=== PATIENT | female | born 1950 | race Caucasian/White ===

== ENCOUNTER 2018-02-01 19:15 | Inpatient (IN) | payer MEDICARE, OTHER ==
[2018-02-01 20:09] LABS: HEMATOCRIT 38.9 % (41.0-60); HEMOGLOBIN 13.1 gm/dL (12-16); MEAN CELL VOLUME 87.1 fl (81-100); MEAN CORPUSCULAR HEMOGLOBIN 29.3 pg (27.0-31.0); MEAN CORPUSCULAR HGB CONC 33.7 pg (28.0-36.0); MEAN PLATELET VOLUME 7.9 fl; PLATELET COUNT 284 Th/cmm (150-400); RED BLOOD COUNT 4.47 Mil/cmm (3.80-5.20); RED CELL DISTRIBUTION WIDTH 12.8 % (11.5-20.0); WHITE BLOOD COUNT 9.2 Th/cmm (4.8-10.8)
[2018-02-01 20:24] LABS: ALB/GLOB RATIO 1.6 (1.0-1.8); ALBUMIN 4.1 gm/dL (3.7-5.3); ALKALINE PHOSPHATASE 57 U/L (34-104); ANION GAP 13.1 (7.0-16.0); BILIRUBIN,TOTAL 0.3 mg/dL (0.3-1.0); BUN - UREA NITROGEN 17 mg/dL (7-25); CALCIUM SERUM 10.2 mg/dL (8.6-10.3); CARBON DIOXIDE 23.7 mEq/L (21.0-31.0); CHLORIDE 106 mEq/L (98-107); CHOLESTEROL 181 mg/dL (<200); CREATININE - SERUM 0.7 mg/dL (0.6-1.2); GFR AFRICAN-AMERICAN > 60.0 ml/min (>90); GFR NON AFRICAN-AMERICAN > 60.0 ml/min; GLUCOSE 84 mg/dL (70-105); HDL -HIGH DENSITY LIPOPROTEIN 29 mg/dL (23-92); POTASSIUM SERUM 3.8 mEq/L (3.5-5.1); SALICYLATES (ASPIRIN) < 25.0 mg/L (30.0-100.0); SGOT 28 U/L (13-39); SGPT/ALT 34 U/L (7-52); SODIUM SERUM 139 mEq/L (136-145); TOTAL PROTEIN,SERUM 6.6 gm/dL (6.0-8.3); TRIGLYCERIDES 202 mg/dL (<150)
[2018-02-01 20:26] LABS: ACETAMINOPHEN < 10.0 ug/mL (10.0-30.0)
[2018-02-01 21:19] LABS: % BASOPHILS 0.9 % (0.0-2.0); % EOSINOPHILS 4.8 % (0.0-5.0); % LYMPHOCYTES 42.7 % (20.0-50.0); % MONOCYTES 8.1 % (2.0-10.0); % NEUTROPHILS 43.5 % (40.0-80.0); NEUTROPHILS 46 % (40-80)
[2018-02-01 21:20] LABS: BAND NEUTROPHILE 0 % (0-10); BASOPHIL 0 % (0-3); EOSINOPHIL 2 % (0-5); LYMPHOCYTE 40 % (20-50); MONOCYTE 12 % (2-10)
[2018-02-01 22:24] VITALS: BP 147/90
[2018-02-01] MEDS ORDERED: Magnesium Hydroxide (MOM) 30 mL UDC PO PRN (22:28)
[2018-02-01 23:08] LABS: CHOLESTEROL 180 mg/dL (<200); HDL -HIGH DENSITY LIPOPROTEIN 31 mg/dL (23-92); TRIGLYCERIDES 205 mg/dL (<150)
--- NOTE | 2018-02-02 00:20 | ED Physician Chart ---
ED Chief Complaint/HPI - Patient Information Date Seen:: 02/01/18 Time Seen:: 19:20 Chief Complaint:: Depression History of Present Illness:: onset x 3 days of depression and SIs; no report of trauma, H/As, neck pain, C/P , SOB, Abd. Pain, A/N/V/D/C, fever, chills, or urinary s/s Allergies:: Allergies Allergy/AdvReac Type Severity Reaction Status Date / Time No Known Allergies Allergy Verified 02/01/18 19:34 Vitals:: Vital Signs - 8 hr 02/01/18 19:20 Temp 98.2 F HR 65 RR 18 BP 120/73 O2 Sat % 98 Historian:: Patient, Family Member Review:: Nurse's Note Reviewed, Old Chart Reviewed ED Review of Systems - Review of Systems General/Constitutional: No fever, No chills, No weight loss, No weakness, No diaphoresis, No edema, No loss of appetite Skin: No skin lesions, No rash, No bruising Head: No headache, No light-headedness Eyes: No loss of vision, No pain, No diplopia ENT: No earache, No nasal drainage, No sore throat, No tinnitus Neck: No neck pain, No swelling, No thyromegaly, No stiffness, No mass noted Cardio Vascular: No chest pain, No palpitations, No PND, No orthopnea, No edema Pulmonary: No SOB, No cough, No sputum, No wheezing GI: No nausea, No vomiting, No diarrhea, No pain, No melena, No hematochezia, No constipation, No hematemesis G/U: No dysuria, No frequency, No hematuria, No nacturia Insolvency Practitioner: No vaginal discharge, No abnormal vaginal bleed, No contraction Musculoskeletal: No bone or joint pain, No back pain, No muscle pain Endocrine: No polyuria, No polydipsia Psychiatric: Prior psych history, Depression, Anxiety, Suicidal ideation, No homicidal ideation, No auditory hallucination, No visual hallucination Hematopoietic: No bruising, No lymphadenopathy Allergic/Immuno: No urticaria, No angioedema Neurological: No syncope, No focal symptoms, No weakness, No paresthesia, No headache, No seizure, No dizziness, Confusion, No vertigo ED Past Medical History - Past Medical History Obtainable: Yes Past Medical History: HTN, DM, Dementia Family History: Diabetes Melitus, HTN Social History: Non Smoker, No Alcohol, No Drug Use, , Care Facility Surgical History: None Psychiatricy History: Depression, Bipolar, Dementia Medication: Reviewed Family Medical History - Family Member Mother History Unknown: Yes Ethnicity: Unknown Living Status: Unknown Hx Family Cancer: (unknown) Hx Family Coronary Artery Disease: (unknown) Hx Family Congestive Heart Failure: (unknown) Hx Family Hypertension: (unknown) Hx Family Stroke: (unknown) Hx Family Diabetes: (unknown) Hx Family Seizures: (unknown) Hx Family Dementia: (unknown) Hx Family AIDS: (unknown) Hx Family HIV: No Hx Family COPD: (unknown) Hx Family Hepatitis: (unknown) Hx Family Psychiatric Problems: (unknown) Hx Family Tuberculosis: (unknown) ED Physical Exam - Physical Examination General/Constitutional: Awake, Well-developed, well-nourished, Alert, No distress, GCS 15, Non-toxic appearing, Ambulatory Head: Atraumatic Eyes: Lids, conjuctiva normal, PERRL, EOMI Skin: Nl inspection, No rash, No skin lesions, No ecchymosis, Well hydrated, No lymphadenopathy ENMT: External ears, nose nl, TM canals nl, Nasal exam nl, Lips, teeth, gums nl , Oropharynx nl, Tonsils nl Neck: Nontender, Full ROM w/o pain, No JVD, No nuchal rigidity, No bruit, No mass, No stridor Respiratory: Nl effort/Exclusion, Clear to Auscultation, No Wheeze/Rhonchi/Rales Cardio Vascular: RRR, No murmur, gallop, rubs, NL S1 S2, Carotid/Femoral/Distal pulses equal bilaterally GI: No tenderness/rebounding/guarding, No organomegaly, No hernia, Normal BS's, Nondistended, No mass/bruits, No McBurney tenderness : No CVA tenderness Extremities: No tenderness or effusion, Full ROM, normal strength in all extremities, No edema, Normal digits & nails Neuro/Psych: Alert/oriented, DTR's symmetric, Normal sensory exam, Normal motor strength, Judgement/insight normal, Mood normal, Normal gait, No focal deficits Other Neuro/Psych comments:: + Psychomotor Retardation; + SIs; Mood/Affect: Tearful Misc: Normal back, No paraspinal tenderness ED Labs/Radiology/EKG Results - Lab Results Results: Laboratory Tests 02/01/18 02/01/18 02/01/18 19:56 19:56 19:56 WBC 9.2 RBC 4.47 Hgb 13.1 Hct 38.9 L MCV 87.1 MCH 29.3 MCHC Differential 33.7 RDW 12.8 Plt Count 284 MPV 7.9 Add Manual Diff YES Neutrophils % 43.5 Band Neutrophils % 0 Lymphocytes % 42.7 Monocytes % 8.1 Eosinophils % 4.8 Basophils % 0.9 Neutrophils (Manual) 46 Lymphocytes 40 Monocytes 12 H Eosinophils 2 Basophils 0 Sodium 139 Potassium 3.8 Chloride 106 Carbon Dioxide 23.7 Anion Gap 13.1 BUN 17 Creatinine 0.7 Est GFR ( Amer) > 60.0 Est GFR (Non-Af Amer) > 60.0 BUN/Creatinine Ratio 24.3 Glucose 84 Calcium 10.2 Total Bilirubin 0.3 AST 28 ALT 34 Alkaline Phosphatase 57 Troponin I Total Protein 6.6 Albumin 4.1 Globulin 2.5 Albumin/Globulin Ratio 1.6 Triglycerides 202 H Cholesterol 181 LDL Cholesterol Direct 140 HDL Cholesterol 29 TSH 3.15 Salicylates < 25.0 L Acetaminophen < 10.0 L Ethyl Alcohol < 10 02/01/18 02/01/18 19:56 19:56 WBC RBC Hgb Hct MCV MCH MCHC Differential RDW Plt Count MPV Add Manual Diff Neutrophils % Band Neutrophils % Lymphocytes % Monocytes % Eosinophils % Basophils % Neutrophils (Manual) Lymphocytes Monocytes Eosinophils Basophils Sodium Potassium Chloride Carbon Dioxide Anion Gap BUN Creatinine Est GFR ( Amer) Est GFR (Non-Af Amer) BUN/Creatinine Ratio Glucose Calcium Total Bilirubin AST ALT Alkaline Phosphatase Troponin I < 0.01 L Total Protein Albumin Globulin Albumin/Globulin Ratio Triglycerides 205 H Cholesterol 180 LDL Cholesterol Direct 145 HDL Cholesterol 31 TSH Salicylates Acetaminophen Ethyl Alcohol Comments:: Reviewed - EKG Interpretations Rate & Rhythm: NSR Comments:: non-specific st-t changes ED Septic Shock - . Is Septic Shock (SBP<90, OR Lactate>4 mmol\L) present?: No - <6hrs of presentation: Vital Signs: Vital Signs - 8 hr 02/01/18 19:20 Temp 98.2 F HR 65 RR 18 BP 120/73 O2 Sat % 98 ED Reassessment (Disposition) - Reassessment Reassessment Condition:: Improved - Diagnosis Diagnosis:: Depression; Suicidal Ideations; Medical Clearance; Dementia; Bipolar Disorder - Aftercare/Follow up Instructions Aftercare/Follow-Up Instructions:: Counseled pt regarding lab results/diagnosis & need follow up, Refer to Discharge Instructions - Patient Disposition Discharge/Transfer:: Acute Care w/in this hosp Admitted to:: [facility] Condition at Disposition:: Stable, Improved
[2018-02-02] MEDS ORDERED: Non-Formulary Item 1 EA (Cranberry Fruit [Cranberry] 450 MG) PO SCH (09:00)
[2018-02-02] MEDS: Multivitamin w/ Minerals Tab PO SCH (09:27)
--- NOTE | 2018-02-02 15:55 | Psychiatric Evaluation ---
DATE OF SERVICE: 02/01/2018 IDENTIFYING INFORMATION: The patient is a 68-year-old female. CHIEF COMPLAINT: "I don't know." HISTORY OF PRESENT ILLNESS: The patient is sent from [place] because of depression and suicidal ideation. The patient herself however is a poor historian. The patient is unable to participate in a meaningful conversation. I spoke with her residential support specialist. When asked her where she is, she said she used to live here in the past. The patient is unable to tell me the date or how old she is, she believes she has 17 children. When asked about work, she started listing so many jobs she had, she reported that she has high school. She is a . Denies substance abuse. Denies any auditory or visual hallucination or paranoia. Denies any intent to harm herself or anybody. PAST PSYCHIATRIC HISTORY: Depression, I have been treating, and dementia, the patient is being treated at [facility]. ALLERGIES: She has no known drug allergies. PAST MEDICAL HISTORY: The patient is with a history of diabetes. MEDICATIONS: She is on metformin and glipizide. FAMILY AND SOCIAL HISTORY: Unobtainable. The patient has been staying at [facility], unable to give much information about herself. She reports that she has [employer] high school education ____ alcohol and drugs, she has 17 children, and she is a . No more information she is able to give. MENTAL STATUS EXAMINATION: The patient is appropriately dressed, not well groomed. Her mood is depressed. Affect is sad. Thoughts are concrete, fragmented. Speech is coherent and [place], but unable to tell the date, where she is or why she is here. Unable to tell me her age. Participated in memory testing; chcf is poor, cannot remember her age; recent memory, events that led to her coming here. Denies any intent to harm herself or anybody. Denies any hallucination or paranoia. She believes that she sleeps well and eats well; however, she is a poor historian. Her insight and judgment is impaired. She does not know if she has a problem. After she is accepting treatment, she is pleasant. Negative poor coping skills. IMPRESSION: 1. Major depression, recurrent, severe, with no psychosis. Dementia. 2. Medical diagnoses: Diabetes mellitus as per medical doctor. INITIAL TREATMENT PLAN: The patient also will be resumed on her Aricept that she is on. Basically, she is already on 10 mg of Lexapro, which I will be increasing to 50 mg a day. We will work with the patient in group therapy, milieu therapy. Adjust the medications as needed. ESTIMATED LENGTH OF STAY: 3-7 days. DISCHARGE CRITERIA: Decrease in depression, feeling better. After discharge, outpatient treatment. JOB# [id number]
[2018-02-02] MEDS ORDERED: Non-Formulary Item 1 EA (Melatonin [Melatonin] 3 MG) PO SCH (21:00)
[2018-02-03] MEDS ORDERED: Escitalopram Oxalate 5 mg Tab PO SCH (09:00)
[2018-02-03] MEDS: Multivitamin w/ Minerals Tab PO SCH (09:44)
--- NOTE | 2018-02-04 00:40 | Progress Notes ---
DATE: 02/03/2018 Case was discussed with staff of the patient, reviewed records. The patient continues to be confused, easily agitated, and wandering on the unit. She believes that she was living here before. Continues to have poor insight, unpredictable, impulsive, needing redirection. Continues to be unable to make safe plan for self-care. Continues to be depressed. Very poor insight. She is demented and confused. I did increase her Lexapro yesterday to 50 mg, for some reason it was ____ actually was discontinued. Her lab work showed CBC with low hematocrit, high monocyte, the rest within normal range. Chemistry panel was within normal range. She has high triglyceride, the rest of the lipid panel within normal range. Toxicology screen was negative and no side effects with the medication, no sedation, no nausea and she is on Aricept 10 mg at bedtime and we will contact the patient in group therapy, milieu therapy, and adjust medications as needed. JOB# [id number]
[2018-02-04] MEDS: Multivitamin w/ Minerals Tab PO SCH (09:08)
--- NOTE | 2018-02-05 03:28 | Progress Notes ---
DATE: 02/04/2018 SUBJECTIVE: The patient was seen and evaluated. The patient's chart reviewed. IDENTIFYING DATA: This is a 68-year-old female brought here from [place] for severe depression, suicidal ideation. Today on [id number] evaluation, presents with helplessness, hopelessness, distressful emotions, and ambivalence about safety. CURRENT MEDICATIONS: The patient is on Aricept 10 mg a day and Lexapro 15 mg. No side effects to medications noted. ASSESSMENT AND PLAN: A 68-year-old female with a history of dementia and also a severe depression with suicidal ideation ____. We will continue with the current medication regimen and continue with primary psychiatrist's treatment plan and goals. [facility]# [id number]
[2018-02-05] MEDS: Multivitamin w/ Minerals Tab PO SCH (08:44)
--- NOTE | 2018-02-05 19:27 | Progress Notes ---
DATE: 02/05/[address] Estrada. Today on [id number] evaluation continues to be confused, minimally interactive, and disengaged. MENTAL STATUS EXAMINATION: Disengaged, emotionally distressful, and ambivalence about safety. ASSESSMENT AND PLAN: Due to the patient's ongoing distressful emotions and feelings that exacerbates her negative thoughts, unable to formulate a safe plan. We will continue primary psychiatrist's treatment plan and goals and medications were recently adjusted. [facility]# [id number]
--- NOTE | 2018-02-06 07:58 | Progress Notes ---
DATE: 02/06/[address] Estrada. Today on [id number] evaluation, denies any side effects of the medication, able to continue tolerability well with her medication regimen. MENTAL STATUS EXAMINATION: Disengaged and worsening ambivalence about safety. ASSESSMENT AND PLAN: Due to the patient's ambivalence about her safety. Findings are disorganized. We will continue with primary psychiatrist's treatment plan and goals, have increase to target the patient's severe depression. JOB# [id number]
[2018-02-06] MEDS: Multivitamin w/ Minerals Tab PO SCH (08:47)
--- NOTE | 2018-02-06 22:53 | History & Physical ---
ADMIT DATE: 02/01/2018 HISTORY OF PRESENT ILLNESS: The patient is a 68-year-old female with long history of diabetes mellitus and dementia, admitted to [facility] under Dr. Estrada's service for evaluation and treatment. The patient is a poor historian. PAST MEDICAL HISTORY: Significant for diabetes mellitus, degenerative joint disease, dementia, and psychosis. PAST SURGICAL HISTORY: No recent surgery. ALLERGIES: None. MEDICATIONS: Follow admission reconciliation. SOCIAL HISTORY: No smoking, no alcohol, no drugs. FAMILY HISTORY: Noncontributory. REVIEW OF SYSTEMS: RENAL SYSTEM: No history of chronic renal disorder. CARDIOVASCULAR SYSTEM: No coronary artery disease. ENDOCRINE SYSTEM: She has history of diabetes mellitus. GASTROINTESTINAL SYSTEM: No upper or lower GI bleed. NEUROLOGICAL SYSTEM: No seizure disorder. MUSCULOSKELETAL SYSTEM: She has degenerative joint disease. HEMATOLOGICAL SYSTEM: No bleeding tendencies. RESPIRATORY SYSTEM: No asthma. GENITOURINARY: No dysuria or hematuria. PHYSICAL EXAMINATION: GENERAL: She is awake, not coherent. VITAL SIGNS: Temperature is 98.3, heart rate 79, and blood pressure 116/78. HEENT: Normocephalic. Pupils reacting to light and accommodation. Sclerae clear. NECK: Supple. Negative for lymphadenopathy, JVD, or bruit. CHEST: Entry of air bilateral normal. No rhonchi or wheezing. HEART: S1, S2 normal. No murmur or gallop rhythm. ABDOMEN: Soft, bowel sounds positive. EXTREMITIES: No edema. NEUROLOGIC: Awake, not coherent. No focal motor or sensory deficit. Cranial nerves II through XII are intact. LABORATORY DATA: White blood cell 9.2, hemoglobin 13.1, hematocrit 38.9, and platelets 284. Sodium 139, potassium 3.8, BUN 70, and creatinine 0.7. Cholesterol 180 and triglycerides 2.5. ASSESSMENT: 1. Diabetes mellitus. 2. Degenerative joint disease. 3. Dementia. 4. Psychosis. PLAN: The patient admitted to the hospital under Dr. Estrada's service. Problems addressed during hospitalization is psychosis. Medical problems addressed at discharge, diabetes mellitus. The patient is medically stable for activity. Thank you, Dr. Estrada, for asking me to see the patient. The patient is full code. JOB# [id number]
[2018-02-07] MEDS: Multivitamin w/ Minerals Tab PO SCH (08:26)
--- NOTE | 2018-02-07 10:18 | Internal Medicine Prog Note ---
Internal Medicine Subjective - Subjective Service Date: 02/07/18 Patient seen and examined:: with staff Patient is:: awake, non-verbal, arousable, in bed, confused Per staff patient has:: no adverse event Internal Medicine Objective - Results Result Diagrams: 02/01/18 19:56 02/01/18 19:56 Recent Labs: Laboratory Last Values WBC 9.2 Th/cmm (4.8-10.8) 02/01/18 19:56 RBC 4.47 Mil/cmm (3.80-5.20) 02/01/18 19:56 Hgb 13.1 gm/dL (12-16) 02/01/18 19:56 Hct 38.9 % (41.0-60) L 02/01/18 19:56 MCV 87.1 fl (81-100) 02/01/18 19:56 MCH 29.3 pg (27.0-31.0) 02/01/18 19:56 MCHC Differential 33.7 pg (28.0-36.0) 02/01/18 19:56 RDW 12.8 % (11.5-20.0) 02/01/18 19:56 Plt Count 284 Th/cmm (150-400) 02/01/18 19:56 MPV 7.9 fl 02/01/18 19:56 Add Manual Diff YES 02/01/18 19:56 Neutrophils % 43.5 % (40.0-80.0) 02/01/18 19:56 Band Neutrophils % 0 % (0-10) 02/01/18 19:56 Lymphocytes % 42.7 % (20.0-50.0) 02/01/18 19:56 Monocytes % 8.1 % (2.0-10.0) 02/01/18 19:56 Eosinophils % 4.8 % (0.0-5.0) 02/01/18 19:56 Basophils % 0.9 % (0.0-2.0) 02/01/18 19:56 Neutrophils (Manual) 46 % (40-80) 02/01/18 19:56 Lymphocytes 40 % (20-50) 02/01/18 19:56 Monocytes 12 % (2-10) H 02/01/18 19:56 Eosinophils 2 % (0-5) 12/19/18 19:56 Basophils 0 % (0-3) 02/01/18 19:56 Sodium 139 mEq/L (136-145) 02/01/18 19:56 Potassium 3.8 mEq/L (3.5-5.1) 02/01/18 19:56 Chloride 106 mEq/L (98-107) 02/01/18 19:56 Carbon Dioxide 23.7 mEq/L (21.0-31.0) 02/01/18 19:56 Anion Gap 13.1 (7.0-16.0) 02/01/18 19:56 BUN 17 mg/dL (7-25) 02/01/18 19:56 Creatinine 0.7 mg/dL (0.6-1.2) 02/01/18 19:56 Est GFR ( Amer) > 60.0 ml/min (>90) 02/01/18 19:56 Est GFR (Non-Af Amer) > 60.0 ml/min 02/01/18 19:56 BUN/Creatinine Ratio 24.3 02/01/18 19:56 Glucose 84 mg/dL (70-105) 02/01/18 19:56 Calcium 10.2 mg/dL (8.6-10.3) 02/01/18 19:56 Total Bilirubin 0.3 mg/dL (0.3-1.0) 02/01/18 19:56 AST 28 U/L (13-39) 18 19:56 ALT 34 U/L (7-52) 02/01/18 19:56 Alkaline Phosphatase 57 U/L (34-104) 02/01/18 19:56 Troponin I < 0.01 ng/mL (0.01-0.05) L 02/01/18 19:56 Total Protein 6.6 gm/dL (6.0-8.3) 02/01/18 19:56 Albumin 4.1 gm/dL (3.7-5.3) 02/01/18 19:56 Globulin 2.5 gm/dL 02/01/18 19:56 Albumin/Globulin Ratio 1.6 (1.0-1.8) 02/01/18 19:56 Triglycerides 205 mg/dL (<150) H 02/01/18 19:56 Cholesterol 180 mg/dL (<200) 02/01/18 19:56 LDL Cholesterol Direct 145 mg/dL (75-193) 02/01/18 19:56 HDL Cholesterol 31 mg/dL (23-92) 02/01/18 19:56 TSH 3.15 uIU/ml (0.34-5.60) 02/01/18 19:56 Salicylates < 25.0 mg/L (30.0-100.0) L 02/01/18 19:56 Acetaminophen < 10.0 ug/mL (10.0-30.0) L 02/01/18 19:56 Ethyl Alcohol < 10 mg/dL (0-10) 02/01/18 19:56 RPR NONREACTIVE (NONREACTIVE) 02/01/18 19:56 - Physical Exam Vitals and I&O: Vital Signs Temp 97.4 F 02/07/18 06:56 Pulse 72 02/07/18 06:56 Resp 19 02/07/18 09:16 BP 118/66 02/07/18 06:56 Pulse Ox 98 02/07/18 06:56 Intake & Output 02/06/18 02/07/18 02/07/18 18:59 06:59 18:59 Intake Total 720 Balance 720 Intake: Oral 720 Other: # Voids 3 # Bowel Movements 0 Active Medications: Current Medications Acetaminophen (Tylenol) 650 mg PO Q4HR PRN PRN Reason: Pain (Mild) LEVEL 1-3 Stop: 04/02/18 22:27 Docusate Sodium (Colace) 100 mg PO BID [facility] Stop: 04/03/18 08:59 Last Admin: 02/07/18 08:26 Dose: 100 mg Donepezil HCl (Aricept) 10 mg PO [facility] Stop: 04/03/18 20:59 Last Admin: 02/06/18 20:28 Dose: 10 mg Escitalopram Oxalate (Lexapro) 15 mg PO DAILY [facility]; Protocol Stop: 04/05/18 08:59 Last Admin: 02/07/18 08:24 Dose: 15 mg Gemfibrozil (Lopid) 600 mg PO BID [facility] Stop: 04/03/18 08:59 Last Admin: 02/07/18 08:26 Dose: 600 mg Glipizide (Glucotrol) 2.5 mg PO BID [facility] Stop: 04/03/18 08:59 Last Admin: 02/07/18 08:25 Dose: 2.5 mg Magnesium Hydroxide (Milk Of Magnesia) 30 ml PO HS PRN PRN Reason: Constipation Stop: 04/02/18 22:27 Metformin HCl (Glucophage) 500 mg PO BID [facility] Stop: 04/03/18 08:59 Last Admin: 02/07/18 08:24 Dose: 500 mg General: demented HEENT: NC/AT, PERRLA, EOMI, anicteric sclerae, throat clear Neck: Supple, No JVD, No thyromegaly, +2 carotid pulse wo bruit, No LAD Lungs: CTAB Cardiovascular: RRR, Normal S1, Normal S2, without murmur Abdomen: soft, non-tender, non-distended Extremities: clear Neurological: no change Internal Medicine Assmt/Plan - Assessment Assessment: 1.DM. 2.DJD. 3.DEMENTIA. 4.PSYCHOSIS. - Plan Plan: CONTINUE ON CURRENT MEDICATION AND DIET. Nutritional Asmnt/Malnutr-PDOC - Dietary Evaluation Malnutrition Findings (Please click <Entered> for more info): Nutritional Asmnt/Malnutrition Start: 02/04/18 10: 39 Text: Status: Active Freq: Protocol: Document 02/04/18 10:39 DONALDO (Rec: 02/04/18 10:45 DONALDO [email or web address]- [email or web address]) Nutritional Asmnt/Malnutrition Patient General Information Diagnosis psychosis Subjective Information Pt asleep at time of visit Current Diet Order/ Nutrition Support [facility] Pertinent Medications colace, MOM, metformin Pertinent Labs 02/01: Na 139, K 3.8, Cl 106, CO2 23.7, BUN 17, cr 0.7, Ca 10.2, glucose 84 Nutritional Hx/Data Height 1.55 m Height (Calculated Centimeters) 154.9 Current Weight (lbs) 58.967 kg Weight (Calculated Kilograms) 59.0 Weight (Calculated Grams) 67513.0 Body Mass Index (BMI) 24.5 Weight Status Approriate GI Symptoms GI Symptoms None Last BM none noted Cultural/Ethnic/Cheondoism Belief unknown Usual diet at home [facility] Skin Integrity/Comment: scott score 22 Estimated Nutritional Goals BEE in Kcals: Using Current wt Calories/Kcals/Kg 25-30kcals/kg Kcals Calculated 1475-1770kcals/kg Protein: Using Current wt Protein g/kg/kg Protein Calculated 59g/day Fluid: ml per MD Nutritional Problem 1. Problem Problem No nutrition diagnosis at this time Intervention/Recommendation Comments Recommend continuing [facility] diet Expected Outcomes/Goals Expected Outcomes/Goals PO intake >75% of meals
--- NOTE | 2018-02-07 13:35 | Progress Notes ---
DATE: SUBJECTIVE: Chart reviewed and the patient interviewed. Also discussed the patient's condition with the staff and reviewed records and labs. The patient is still forgetful and is still confused. Also, she has flat affect. The patient also seems to be less agitated and less irritable and more cooperative with her treatment and compliant with taking her medications. ASSESSMENT: The patient is still confused and agitated. TREATMENT PLAN: Continue monitoring her behavior and her condition. Also continue Aricept 10 mg and Lexapro 15 mg every day. Continue to monitor her behavior and follow up closely. JOB# [id number]
[2018-02-08] MEDS: Multivitamin w/ Minerals Tab PO SCH (08:22)
--- NOTE | 2018-02-08 12:07 | Discharge Summary ---
DATE OF DISCHARGE: 02/08/2018 IDENTIFYING INFORMATION: This is a 68-year-old female. CHIEF COMPLAINT: I don't know, patient is a Nepalese speaker, we spoke through a fiberglass tube molder. She came from [place] because of depression and suicidal ideation. The patient always a poor historian. The patient is unable to participate in meaningful conversation. I spoke with her aunt. When I talked to her, she says she used to live here in the past, the patient unable to tell the date or how old she is, why she is here. She believes she has 17 children and so she said she had many jobs that she has high school education. She is . She denies substance abuse. Denies any visual or paranoia. Denies any intent to harm self or anybody. The patient is a well-known case and I have been seeing her at [place]. The patient's medical history diabetes mellitus. COURSE IN HOSPITAL: The patient was started on Lexapro and increased the dose to 50 mg a day. The patient also was continued with Aricept 10 mg at bedtime, glipizide, metformin, and multivitamin. The patient progressively got better. She was no longer acting out. She was sleeping well, eating well. She continues to be demented, confused, unable to make safe plan for self-care or participate in meaningful conversation; however, she was not acting out. She was not acting anyway dangerous, so we felt patient could be discharged to a lesser level of care. FINAL DIAGNOSES: Major depression, recurrent, severe with no psychosis, dementia. MEDICAL DIAGNOSES: Diabetes mellitus and hyperlipidemia. The patient will be going back to [place], follow up with the psychiatrist, primary care physician and therapist expected outcome. She is stable if the patient complies with the above referral for the patient there as well as medical doctor. EXPECTED OUTCOME: Stable if the patient complies above. JOB# [id number]
--- NOTE | 2018-02-08 12:17 | Internal Medicine Prog Note ---
Internal Medicine Subjective - Subjective Service Date: 02/08/18 Patient seen and examined:: with staff Patient is:: awake, non-verbal, arousable, in bed, confused Per staff patient has:: no adverse event Internal Medicine Objective - Results Result Diagrams: 02/01/18 19:56 02/01/18 19:56 Recent Labs: Laboratory Last Values WBC 9.2 Th/cmm (4.8-10.8) 02/01/18 19:56 RBC 4.47 Mil/cmm (3.80-5.20) 02/01/18 19:56 Hgb 13.1 gm/dL (12-16) 02/01/18 19:56 Hct 38.9 % (41.0-60) L 02/01/18 19:56 MCV 87.1 fl (81-100) 02/01/18 19:56 MCH 29.3 pg (27.0-31.0) 02/01/18 19:56 MCHC Differential 33.7 pg (28.0-36.0) 02/01/18 19:56 RDW 12.8 % (11.5-20.0) 02/01/18 19:56 Plt Count 284 Th/cmm (150-400) 02/01/18 19:56 MPV 7.9 fl 02/01/18 19:56 Add Manual Diff YES 02/01/18 19:56 Neutrophils % 43.5 % (40.0-80.0) 02/01/18 19:56 Band Neutrophils % 0 % (0-10) 02/01/18 19:56 Lymphocytes % 42.7 % (20.0-50.0) 02/01/18 19:56 Monocytes % 8.1 % (2.0-10.0) 02/01/18 19:56 Eosinophils % 4.8 % (0.0-5.0) 02/01/18 19:56 Basophils % 0.9 % (0.0-2.0) 02/01/18 19:56 Neutrophils (Manual) 46 % (40-80) 02/01/18 19:56 Lymphocytes 40 % (20-50) 02/01/18 19:56 Monocytes 12 % (2-10) H 02/01/18 19:56 Eosinophils 2 % (0-5) 12/19/18 19:56 Basophils 0 % (0-3) 02/01/18 19:56 Sodium 139 mEq/L (136-145) 02/01/18 19:56 Potassium 3.8 mEq/L (3.5-5.1) 02/01/18 19:56 Chloride 106 mEq/L (98-107) 02/01/18 19:56 Carbon Dioxide 23.7 mEq/L (21.0-31.0) 02/01/18 19:56 Anion Gap 13.1 (7.0-16.0) 02/01/18 19:56 BUN 17 mg/dL (7-25) 02/01/18 19:56 Creatinine 0.7 mg/dL (0.6-1.2) 02/01/18 19:56 Est GFR ( Amer) > 60.0 ml/min (>90) 02/01/18 19:56 Est GFR (Non-Af Amer) > 60.0 ml/min 02/01/18 19:56 BUN/Creatinine Ratio 24.3 02/01/18 19:56 Glucose 84 mg/dL (70-105) 02/01/18 19:56 Calcium 10.2 mg/dL (8.6-10.3) 02/01/18 19:56 Total Bilirubin 0.3 mg/dL (0.3-1.0) 02/01/18 19:56 AST 28 U/L (13-39) 18 19:56 ALT 34 U/L (7-52) 02/01/18 19:56 Alkaline Phosphatase 57 U/L (34-104) 02/01/18 19:56 Troponin I < 0.01 ng/mL (0.01-0.05) L 02/01/18 19:56 Total Protein 6.6 gm/dL (6.0-8.3) 02/01/18 19:56 Albumin 4.1 gm/dL (3.7-5.3) 02/01/18 19:56 Globulin 2.5 gm/dL 02/01/18 19:56 Albumin/Globulin Ratio 1.6 (1.0-1.8) 02/01/18 19:56 Triglycerides 205 mg/dL (<150) H 02/01/18 19:56 Cholesterol 180 mg/dL (<200) 02/01/18 19:56 LDL Cholesterol Direct 145 mg/dL (75-193) 02/01/18 19:56 HDL Cholesterol 31 mg/dL (23-92) 02/01/18 19:56 TSH 3.15 uIU/ml (0.34-5.60) 02/01/18 19:56 Salicylates < 25.0 mg/L (30.0-100.0) L 02/01/18 19:56 Acetaminophen < 10.0 ug/mL (10.0-30.0) L 02/01/18 19:56 Ethyl Alcohol < 10 mg/dL (0-10) 02/01/18 19:56 RPR NONREACTIVE (NONREACTIVE) 02/01/18 19:56 - Physical Exam Vitals and I&O: Vital Signs Temp 97.9 F 02/08/18 04:40 Pulse 69 02/08/18 04:40 Resp 19 02/08/18 08:43 BP 135/80 02/08/18 04:40 Pulse Ox 99 02/08/18 04:40 Intake & Output 02/07/18 02/08/18 02/08/18 18:59 06:59 18:59 Intake Total 480 Balance 480 Intake: Oral 480 Other: # Voids 2 Active Medications: Current Medications Acetaminophen (Tylenol) 650 mg PO Q4HR PRN PRN Reason: Pain (Mild) LEVEL 1-3 Stop: 04/02/18 22:27 Last Admin: 02/07/18 20:19 Dose: 650 mg Docusate Sodium (Colace) 100 mg PO BID [facility] Stop: 04/03/18 08:59 Last Admin: 02/08/18 08:21 Dose: 100 mg Donepezil HCl (Aricept) 10 mg PO HS [facility] Stop: 04/03/18 20:59 Last Admin: 02/07/18 20:19 Dose: 10 mg Escitalopram Oxalate (Lexapro) 15 mg PO DAILY [facility]; Protocol Stop: 04/05/18 08:59 Last Admin: 02/08/18 08:22 Dose: 15 mg Gemfibrozil (Lopid) 600 mg PO BID [facility] Stop: 04/03/18 08:59 Last Admin: 02/08/18 08:21 Dose: 600 mg Glipizide (Glucotrol) 2.5 mg PO BID [facility] Stop: 04/03/18 08:59 Last Admin: 02/08/18 08:21 Dose: 2.5 mg Magnesium Hydroxide (Milk Of Magnesia) 30 ml PO HS PRN PRN Reason: Constipation Stop: 04/02/18 22:27 Metformin HCl (Glucophage) 500 mg PO BID JESSIKA Stop: 04/03/18 08:59 Last Admin: 02/08/18 08:22 Dose: 500 mg General: demented HEENT: NC/AT, PERRLA, EOMI, anicteric sclerae, throat clear Neck: Supple, No JVD, No thyromegaly, +2 carotid pulse wo bruit, No LAD Lungs: CTAB Cardiovascular: RRR, Normal S1, Normal S2, without murmur Abdomen: soft, non-tender, non-distended Extremities: clear Neurological: no change Internal Medicine Assmt/Plan - Assessment Assessment: 1.DM. 2.DJD. 3.DEMENTIA. 4.PSYCHOSIS. - Plan Plan: CONTINUE ON CURRENT MEDICATION AND DIET. Nutritional Asmnt/Malnutr-PDOC - Dietary Evaluation Malnutrition Findings (Please click <Entered> for more info): Nutritional Asmnt/Malnutrition Start: 02/04/18 10: 39 Text: Status: Active Freq: Protocol: Document 02/04/18 10:39 DONALDO (Rec: 02/04/18 10:45 DONALDO VILLALPANDO- [email or web address]) Nutritional Asmnt/Malnutrition Patient General Information Diagnosis psychosis Subjective Information Pt asleep at time of visit Current Diet Order/ Nutrition Support [facility] Pertinent Medications colace, MOM, metformin Pertinent Labs 02/01: Na 139, K 3.8, Cl 106, CO2 23.7, BUN 17, cr 0.7, Ca 10.2, glucose 84 Nutritional Hx/Data Height 1.55 m Height (Calculated Centimeters) 154.9 Current Weight (lbs) 58.967 kg Weight (Calculated Kilograms) 59.0 Weight (Calculated Grams) 93188.0 Body Mass Index (BMI) 24.5 Weight Status Approriate GI Symptoms GI Symptoms None Last BM none noted Cultural/Ethnic/Mandaeism Belief unknown Usual diet at home [facility] Skin Integrity/Comment: scott score 22 Estimated Nutritional Goals BEE in Kcals: Using Current wt Calories/Kcals/Kg 25-30kcals/kg Kcals Calculated 1475-1770kcals/kg Protein: Using Current wt Protein g/kg/kg Protein Calculated 59g/day Fluid: ml per MD Nutritional Problem 1. Problem Problem No nutrition diagnosis at this time Intervention/Recommendation Comments Recommend continuing CCHO diet Expected Outcomes/Goals Expected Outcomes/Goals PO intake >75% of meals
== END 2018-02-08 18:00 | DRG 885 ==
LOC: ER 19:15 → GERO2 20:40
PROVIDERS: ADMIT Psychiatry & Neurology Psychiatry; ATTEND Psychiatry & Neurology Psychiatry
DX: F33.2 Major depressive disorder, recurrent severe without psychotic features (principal); R45.851 Suicidal ideations; I10 Essential (primary) hypertension; E11.9 Type 2 diabetes mellitus without complications; F03.90 Unspecified dementia, unspecified severity, without behavioral disturbance, psychotic disturbance, mood disturbance, and anxiety; M19.90 Unspecified osteoarthritis, unspecified site; F29 Unspecified psychosis not due to a substance or known physiological condition; E78.5 Hyperlipidemia, unspecified; Z83.3 Family history of diabetes mellitus; Z82.49 Family history of ischemic heart disease and other diseases of the circulatory system
CPT/HCPCS: 36415-UA; 80053-TC; 80061-TC; 80320-TC; 80329-TC; 83036-90; 84443-TC; 84484-TC; 85007-TC; 85025-TC; 86592-TC; 93005; G0410; Z7610